=== PATIENT | male | born 1965 | race Caucasian/White ===

== ENCOUNTER 2017-07-04 10:32 | Day surgery (SDC) | payer BC ==
[~2017-07-04] VITALS: Ht 170.2 cm; Wt 104.0 kg
[~2017-07-04 10:32] MED LIST: HYDR1TAB94 PO; PSEU120ER PO
== END 2017-07-04 15:45 | disposition home or self-care (01) ==
LOC: ORSCSDS 10:32
PROVIDERS: Orthopaedic Surgery
PROC: 0RNJ4ZZ Release Right Shoulder Joint, Percutaneous Endoscopic Approach (ICD-10-PCS; principal; 2017-07-04 12:30)
PROC: 0LS14ZZ Reposition Right Shoulder Tendon, Percutaneous Endoscopic Approach (ICD-10-PCS; principal; 2017-07-04 12:30)
PROC: 0LQ14ZZ Repair Right Shoulder Tendon, Percutaneous Endoscopic Approach (ICD-10-PCS; principal; 2017-07-04 12:30)
PROC: 01N50ZZ Release Median Nerve, Open Approach (ICD-10-PCS; principal; 2017-07-04 12:30)
DX: M75.101 Unspecified rotator cuff tear or rupture of right shoulder, not specified as traumatic (principal); M75.41 Impingement syndrome of right shoulder; M75.21 Bicipital tendinitis, right shoulder; M75.51 Bursitis of right shoulder; G56.01 Carpal tunnel syndrome, right upper limb; E66.9 Obesity, unspecified; Z68.35 Body mass index [BMI] 35.0-35.9, adult
CPT/HCPCS: C1713; J0171; J0690; J1100; J1885; J2250; J2405; J3010; J7120

== ENCOUNTER 2018-04-10 06:18 | Day surgery (SDC) | payer BC ==
[~2018-04-10] VITALS: Ht 170.2 cm; Wt 104.3 kg
[2018-04-10] MEDS ORDERED: ADVIL100 MG (07:32)
[2018-04-10] MEDS ORDERED: PSEU120ER (07:32)
== END 2018-04-10 11:22 | disposition home or self-care (01) ==
LOC: ORSCSDS 06:18
PROVIDERS: Orthopaedic Surgery
PROC: 0RNK4ZZ Release Left Shoulder Joint, Percutaneous Endoscopic Approach (ICD-10-PCS; principal; 2018-04-10 08:00)
PROC: 01N50ZZ Release Median Nerve, Open Approach (ICD-10-PCS; principal; 2018-04-10 08:00)
PROC: 0LQ24ZZ Repair Left Shoulder Tendon, Percutaneous Endoscopic Approach (ICD-10-PCS; principal; 2018-04-10 08:00)
PROC: 0LS24ZZ Reposition Left Shoulder Tendon, Percutaneous Endoscopic Approach (ICD-10-PCS; principal; 2018-04-10 08:00)
DX: M75.112 Incomplete rotator cuff tear or rupture of left shoulder, not specified as traumatic (principal); M75.22 Bicipital tendinitis, left shoulder; M75.42 Impingement syndrome of left shoulder; G56.02 Carpal tunnel syndrome, left upper limb; E66.01 Morbid (severe) obesity due to excess calories; Z68.36 Body mass index [BMI] 36.0-36.9, adult
CPT/HCPCS: C1713; J0171; J0690; J2250; J3010; J7120

== ENCOUNTER 2019-06-04 13:20 | Day surgery (SDC) | payer BC ==
[~2019-06-04] VITALS: Ht 170.2 cm; Wt 105.8 kg
[~2019-06-04 13:20] MED LIST changes: +ADVIL100 MG; +PSEU120ER
--- NOTE | 2019-06-04 16:55 | NUR ---
06/04/19 1655 Yvette Seals 1 MG EPI INJECTED EACH OF THE FIRST 3 BAGS OF FLUID.
--- NOTE | 2019-06-04 18:16 | NUR ---
06/04/[address] TO RECOVERY ROOM 8 TO CONDUCT POST-OP FEMORAL BLOCK. VITAL SIGNS: 155/79, 18RR, 75BPM, 94% O2. 1726: TIME OUT PERFORMED 1727: SITE CHECK & START 1737: UNABLE TO LOCATE FEMORAL NERVE SITE. LEFT ADDUCTOR CANAL BLOCK CONDUCTED. SITE CHECK. 1744: PROCEDURE COMPLETE PT TOLERATED WELL, REMINDED TO TAKE DEEP BREATHES THROUGH DISCOMFORT AND VERBALIZE WHERE HE FELT PAIN. PULSE OX ON PATIENT THROUGHOUT PROCEDURE, VSS.
== END 2019-06-04 18:17 | disposition home or self-care (01) ==
LOC: ORSCSDS 13:20
PROVIDERS: Orthopaedic Surgery
PROC: 0SBD4ZZ Excision of Left Knee Joint, Percutaneous Endoscopic Approach (ICD-10-PCS; principal; 2019-06-04 14:30)
DX: M25.861 Other specified joint disorders, right knee (principal); S83.242A Other tear of medial meniscus, current injury, left knee, initial encounter; M17.12 Unilateral primary osteoarthritis, left knee; E66.9 Obesity, unspecified; Z68.36 Body mass index [BMI] 36.0-36.9, adult
CPT/HCPCS: C1713; J0171; J0690; J1100; J1885; J2250; J2405; J2704; J2795; J3010; J7120

== ENCOUNTER 2023-05-17 07:38 | Day surgery (SDC) | payer OTHER | END 2023-05-17 23:15 | disposition home or self-care (01) | LOC: CT 07:38 | DX: R94.31 Abnormal electrocardiogram [ECG] [EKG] (principal); R94.39 Abnormal result of other cardiovascular function study; E78.5 Hyperlipidemia, unspecified; I25.10 Atherosclerotic heart disease of native coronary artery without angina pectoris | CPT/HCPCS: 75574; Q9967 ==

== ENCOUNTER 2024-02-04 06:10 | Day surgery (SDC) | payer OTHER ==
[2024-02-04] VITALS (13 sets, daily range): BP systolic 117–159; BP diastolic 24–100
[~2024-02-04] VITALS: Ht 167.6 cm; Wt 105.6 kg
[~2024-02-04 06:10] MED LIST changes: +ASPI81CH PO; +Crestor40 MG PO; +IBUP200 PO; +VERAPAMIL ER120 M1 PO
[2024-02-04] MEDS ORDERED: Ropivacaine 0.5% HCl/Pf 123.125 MG,EPINEPHrine HCL 0.25 MG,Ketorolac Tromethamine 15 MG... INFIL SCH (06:20)
[2024-02-04] MEDS ORDERED: Lactated Ringer's 1,000 ML IV SCH ×2 (06:20→09:45)
[2024-02-04] MEDS ORDERED: OxyCODONE HCL 10 MG TABCR PO SCH (06:20)
[2024-02-04] MEDS ORDERED: Acetaminophen 500 MG Tab PO SCH ×2 (06:20→16:00)
[2024-02-04] MEDS ORDERED: Chlorhexidine Mouth Care 15 ML UDC MT SCH (06:20)
[2024-02-04] MEDS ORDERED: CeFAZolin Sodium 2,000 MG in NS 100 ML IV SCH ×2 (06:20→16:00)
[2024-02-04] MEDS ORDERED: Tranexamic Acid 100 ML IV SCH (06:21)
--- NOTE | 2024-02-04 07:16 | NUR ---
History, Chart, Medications and Allergies reviewed before start of procedure. Pre-Op teaching done. Pt verbalizes understanding. Ambulatory in Day Surgery WITH STEADY GAIT.
[2024-02-04] MEDS ORDERED: propofoL 60 ML IV ONE (07:23)
[2024-02-04] MEDS ORDERED: ePHEDrine Sulfate 50 MG/ML 1ML Injection ONE (08:06)
[2024-02-04] MEDS ORDERED: propofoL 20 ML IV ONE (08:10)
--- NOTE | 2024-02-04 08:31 | NUR ---
02/04/24 0831 Vikas,Morelia SPINAL BLOCK COMPLETED BY UPON ENTRY TO OR. PATIENT TOLERATED WELL.
[2024-02-04] MEDS ORDERED: propofoL 40 ML IV ONE (08:38)
[2024-02-04] MEDS ORDERED: Ketorolac Tromethamine 30mg Vial ONE (09:27)
[2024-02-04] MEDS ORDERED: HYDROmorphone HCl/Pf 1MG SYR IV PRN (09:40)
[2024-02-04] MEDS ORDERED: DiphenhydrAMINE HCL 25 MG Cap PO PRN (09:40)
[2024-02-04] MEDS ORDERED: Ondansetron HCl 2 MG / ML 2ML Vial IV PRN (09:45)
[2024-02-04] MEDS ORDERED: Promethazine HCl 25 MG Tab PO PRN (09:45)
[2024-02-04] MEDS ORDERED: Bisacodyl 10 MG Supp PR PRN (09:45)
[2024-02-04] MEDS ORDERED: Magnesium Hydroxide Conc 10 ML UDC PO PRN (09:45)
[2024-02-04] MEDS ORDERED: Metoclopramide HCl 5MG / ML 2ML Vial IV PRN (09:45)
[2024-02-04] MEDS ORDERED: OxyCODONE HCL 5 MG TAB PO PRN ×2 (09:50)
--- NOTE | 2024-02-04 10:17 | NUR ---
ARRIVAL TO SURGICAL UNIT VIA HOSPITAL BED. ALERT & PLEASANT. ASSESSMENT CHARTED. DENIES N/V OR PAIN. SNACKS & DRINKS GIVEN. PLANS TO GO HOME TODAY.
--- NOTE | 2024-02-04 15:45 | NUR ---
DISCHARGE PT WORKED w/ THERAPY. PAIN WELL CONTROLLED. EATING, DRINKING, & VOIDING WELL. LINA [facility] SENT w/ PT. ESCORTED OUT VIA W/C.
[2024-02-04] MEDS ORDERED: Ketorolac Tromethamine 15mg Vial IV SCH (16:00)
[2024-02-04] MEDS ORDERED: Docusate Sodium 100 MG Cap PO SCH (21:00)
[2024-02-05] MEDS ORDERED: Verapamil HCL 120 MG TABCR PO SCH (09:00)
[2024-02-05] MEDS ORDERED: Rosuvastatin Calcium 10 MG Tab PO SCH (09:00)
[2024-02-05] MEDS ORDERED: Aspirin 81 MG Chew PO SCH (09:00)
== END 2024-02-04 15:45 | disposition home or self-care (01) ==
LOC: ORSCMMR 06:10 → ORD 07:30 → SURS 10:05 → ORD 11:00 → ORSCMMR 15:45
PROVIDERS: Orthopaedic Surgery
PROC: 0SRD0JA Replacement of Left Knee Joint with Synthetic Substitute, Uncemented, Open Approach (ICD-10-PCS; principal; 2024-02-04 07:30)
DX: M17.12 Unilateral primary osteoarthritis, left knee (principal); E78.5 Hyperlipidemia, unspecified; I25.10 Atherosclerotic heart disease of native coronary artery without angina pectoris; E66.9 Obesity, unspecified; Z68.37 Body mass index [BMI] 37.0-37.9, adult; Z79.82 Long term (current) use of aspirin; Z79.899 Other long term (current) drug therapy
CPT/HCPCS: 73560-LT; 97110; 97116; 97161; A9270; C1713; C1776; J0171; J0690; J0735; J1885; J2704; J2795; J7120